=== PATIENT | male | born 1945 | race Caucasian/White ===

== ENCOUNTER 2020-04-22 07:18 | Outpatient (CLI) | payer MEDICARE ==
[2020-04-22 15:20] LABS: BASOPHILS % (AUTO) 0.4 %; EOSINOPHILS # (AUTO) 0.2 10^3/uL (0.0-0.7); EOSINOPHILS % (AUTO) 2.7 %; HGB - HEMOGLOBIN 12.7 g/dL (14.0-18.0); LYMPHOCYTES # (AUTO) 0.9 10^3/uL (1.5-3.5); LYMPHOCYTES % (AUTO) 16.9 %; MEAN CORPUSCULAR HEMOGLOBIN 32.8 pg (27.0-31.0); MEAN CORPUSCULAR HGB CONC 31.8 g/dL (32.0-36.0); MEAN CORPUSCULAR VOLUME 103.4 fL (80.0-94.0); MEAN PLATELET VOLUME 10.3 fL (7.4-11.4); MONOCYTES # (AUTO) 0.5 10^3/uL (0.0-1.0); MONOCYTES % (AUTO) 9.3 %; NEUTROPHILS # (AUTO) 3.9 10^3/uL (1.5-6.6); NEUTROPHILS % (AUTO) 70.5 %; PLT - PLATELET COUNT 236 10^3/uL (130-450); RED BLOOD COUNT 3.87 10^6/uL (4.70-6.10); RED CELL DISTRIBUTION WIDTH 13.1 % (12.0-15.0); WHITE BLOOD COUNT 5.5 x10^3/uL (4.8-10.8)
[2020-04-22 15:35] LABS: % IRON SATURATION 32 % (20-50); BUN - BLOOD UREA NITROGEN 26 mg/dL (6-20); CARBON DIOXIDE - CO2 29 mmol/L (21-32); CHLORIDE 99 mmol/L (101-111); CHOL/HDL RATIO 2.9 (<5.0); CHOLESTEROL 141 mg/dL; CREATININE 0.9 mg/dL (0.6-1.2); GLUCOSE 95 mg/dL (70-100); HDL CHOLESTEROL 49 mg/dL; IRON 107 ug/dL (45-182); LDL CHOLESTEROL,CALCULATED 82 mg/dL; LDL/HDL RATIO 1.7 (<3.6); SODIUM 144 mmol/L (135-145); TOTAL IRON BINDING CAPACITY 332 ug/dL (250-450); TRANSFERRIN 237 mg/dL (180-329); VLDL CHOLESTEROL 10 mg/dL
== END 2020-04-22 07:19 | disposition home or self-care (01) ==
LOC: LAB.S 07:18
PROVIDERS: ATTEND Internal Medicine
DX: D12.6 Benign neoplasm of colon, unspecified (principal); I25.10 Atherosclerotic heart disease of native coronary artery without angina pectoris; E78.5 Hyperlipidemia, unspecified; I10 Essential (primary) hypertension; R73.01 Impaired fasting glucose; I77.9 Disorder of arteries and arterioles, unspecified; Z95.5 Presence of coronary angioplasty implant and graft; D64.9 Anemia, unspecified
CPT/HCPCS: 36415; 80048; 80061; 83540; 83721; 84466; 85025

== ENCOUNTER 2020-06-02 14:47 | Outpatient (CLI) | payer MEDICARE ==
--- NOTE | 2020-06-02 17:23 | CT Report ---
PROCEDURE: Low Dose Lung Cancer Screen INDICATIONS: HISTORY OF SMOKING TECHNIQUE: Noncontrast low-dose 5 mm thick sections acquired from the pulmonary apices to the posterior costophr enic angles. 7 mm thick coronal and sagittal MIP reformats were then acquired. For radiation dose r eduction, the following was used: automated exposure control, adjustment of mA and/or kV according t o patient size. COMPARISON: None. FINDINGS: Image quality: Excellent. Lungs and pleura: 3 mm peripheral right upper lobe nodule seen on image 100, series 4. 5 mm medial right upper lobe nodule seen on image 100, series 4. Mediastinum: Heart size is normal. No pericardial effusion. Moderate atherosclerotic calcifications of the coronary arteries. No mediastinal adenopathy by size criteria. Thoracic aorta and central p ulmonary arteries are normal in size. Esophagus is normal in caliber. No hiatal hernia. Bones and chest wall: No suspicious bony lesions. No vertebral body compression fractures. No axil presley or supraclavicular adenopathy by size criteria. The thyroid is normal in size. Abdomen: Incompletely imaged kidneys demonstrate possible nonobstructing bilateral nephroliths. Lily lizzie the visualized upper abdomen solid organs and bowel loops appear unremarkable sin the absence o f contrast. IMPRESSION: CT chest without acute cardiopulmonary abnormalities. There are 2 right upper lobe pulmonary nodules measuring 3 mm and 5 mm in size. Moderate atherosclerotic calcifications of the coronary arteries. Lung RADS 2: Recommend follow-up screening chest CT in 12 months. Reviewed by: Naveed Arredondo MD on 06/02/2020 5:21 PM PST Approved by: Naveed Arredondo MD on 06/02/2020 5:21 PM PST Station ID: [id number]
== END 2020-06-02 14:48 | disposition home or self-care (01) ==
LOC: DI 14:47
PROVIDERS: ATTEND Internal Medicine
DX: Z12.2 Encounter for screening for malignant neoplasm of respiratory organs (principal); Z87.891 Personal history of nicotine dependence
CPT/HCPCS: G0297 ×2

== ENCOUNTER 2021-04-19 09:06 | Outpatient (CLI) | payer MEDICARE ==
[2021-04-19 14:58] LABS: BASOPHILS % (AUTO) 0.5 %; EOSINOPHILS # (AUTO) 0.1 10^3/uL (0.0-0.7); EOSINOPHILS % (AUTO) 1.5 %; HCT - HEMATOCRIT 39.4 % (42.0-52.0); HGB - HEMOGLOBIN 12.8 g/dL (14.0-18.0); LYMPHOCYTES # (AUTO) 1.1 10^3/uL (1.5-3.5); LYMPHOCYTES % (AUTO) 18.7 %; MEAN CORPUSCULAR HEMOGLOBIN 32.7 pg (27.0-31.0); MEAN CORPUSCULAR HGB CONC 32.5 g/dL (32.0-36.0); MEAN CORPUSCULAR VOLUME 100.5 fL (80.0-94.0); MEAN PLATELET VOLUME 10.7 fL (7.4-11.4); MONOCYTES # (AUTO) 0.6 10^3/uL (0.0-1.0); MONOCYTES % (AUTO) 10.5 %; NEUTROPHILS # (AUTO) 4.1 10^3/uL (1.5-6.6); NEUTROPHILS % (AUTO) 68.3 %; PLT - PLATELET COUNT 226 10^3/uL (130-450); RED BLOOD COUNT 3.92 10^6/uL (4.70-6.10); RED CELL DISTRIBUTION WIDTH 13.1 % (12.0-15.0)
[2021-04-19 15:03] LABS: BUN - BLOOD UREA NITROGEN 20 mg/dL (6-20); CALCIUM 8.9 mg/dL (8.5-10.3); CARBON DIOXIDE - CO2 30 mmol/L (21-32); CHLORIDE 102 mmol/L (101-111); CHOL/HDL RATIO 2.9 (<5.0); CHOLESTEROL 143 mg/dL; CREATININE 0.9 mg/dL (0.6-1.2); GFR - MDRD 83 (>89); GLUCOSE 96 mg/dL (70-100); HDL CHOLESTEROL 50 mg/dL; LDL CHOLESTEROL,CALCULATED 80 mg/dL; LDL/HDL RATIO 1.6 (<3.6); POTASSIUM 4.2 mmol/L (3.5-5.0); SODIUM 140 mmol/L (135-145); TRIGLYCERIDES 66 mg/dL; VLDL CHOLESTEROL 13 mg/dL
== END 2021-04-19 09:07 | disposition home or self-care (01) ==
LOC: LAB.S 09:06
PROVIDERS: ATTEND Internal Medicine
DX: Z00.00 Encounter for general adult medical examination without abnormal findings (principal); D12.6 Benign neoplasm of colon, unspecified; D64.9 Anemia, unspecified; I25.10 Atherosclerotic heart disease of native coronary artery without angina pectoris; N52.9 Male erectile dysfunction, unspecified; Z87.891 Personal history of nicotine dependence; E78.5 Hyperlipidemia, unspecified; I10 Essential (primary) hypertension; R73.01 Impaired fasting glucose; I77.9 Disorder of arteries and arterioles, unspecified; Z95.5 Presence of coronary angioplasty implant and graft
CPT/HCPCS: 36415; 80048; 80061; 83721; 85025

== ENCOUNTER 2021-05-07 09:15 | Outpatient (CLI) | payer MEDICARE ==
--- NOTE | 2021-05-07 09:51 | CT Report ---
PROCEDURE: Low Dose Lung Cancer Screen INDICATIONS: EX SMOKER TECHNIQUE: Noncontrast low-dose images were acquired from the pulmonary apices to the posterior costophrenic ang les. Multiplanar MIP reformats were then acquired. For radiation dose reduction, the following was used: automated exposure control, adjustment of mA and/or kV according to patient size. COMPARISON: None. FINDINGS: Image quality: Excellent. Lungs and pleura: No mass or significant pulmonary nodules. No acute airspace opacity. Trace secreti ons in the trachea. No pleural effusion. No pneumothorax. Mediastinum: Heart size is normal. Three-vessel coronary artery calcifications. No pericardial effu raffi. No mediastinal adenopathy by size criteria. Thoracic aorta and central pulmonary arteries are normal in size. Aortic arch calcifications. Esophagus is normal in caliber. No hiatal hernia. Bones and chest wall: No suspicious bony lesions. No vertebral body compression fractures. No axil presley or supraclavicular adenopathy by size criteria. The thyroid is normal in size and there are no incidental findings. Abdomen: Visualized upper abdomen solid organs and bowel loops appear normal in the absence of contr ast. IMPRESSION: 1. No significant pulmonary nodules. Lung RADS 1. Recommend follow-up CT lung cancer screening in 12 months. 2. Three-vessel coronary artery calcifications. Reviewed by: Austin Parker MD on 05/07/2021 9:49 AM [facility] Approved by: Austin Parker MD on 05/07/2021 9:49 AM PST Station ID: [id number]
--- NOTE | 2021-05-07 11:17 | Ultrasound Report ---
PROCEDURE: Aorta Screening INDICATIONS: EX SMOKER TECHNIQUE: Real time scanning was performed of the aorta and iliac arteries, with image documentatio n. COMPARISON: None available. FINDINGS: Aorta: Proximal aortic diameter measures 2.6 x 2.5 cm. Mid-aorta measures 2.2 x 2.1 cm. Distal aor tic diameter is 2.5 x 2.6 cm. Ectasia of the aorta with atheromatous change. Iliac arteries: Right common iliac artery measures 1 x 1.1 cm. Left common iliac artery measures up to 1.9 x 2 cm. Mural thrombus is noted within the left common iliac artery. IMPRESSION: 1. Dilatation of the left common iliac artery, concerning for aneurysm. If clinically warranted, cons ider CTA imaging for further evaluation. Reviewed by: Eduardo Lloyd MD on 05/07/2021 11:15 AM PST Approved by: Eduardo Lloyd MD on 05/07/2021 11:15 AM PST Station ID: [id number]
== END 2021-05-07 09:16 | disposition home or self-care (01) ==
LOC: DI 09:15
PROVIDERS: ATTEND Internal Medicine
DX: Z12.2 Encounter for screening for malignant neoplasm of respiratory organs (principal); Z13.6 Encounter for screening for cardiovascular disorders; I25.10 Atherosclerotic heart disease of native coronary artery without angina pectoris; Z87.891 Personal history of nicotine dependence; I72.3 Aneurysm of iliac artery

== ENCOUNTER 2022-04-05 08:47 | Outpatient (CLI) | payer MEDICARE ==
[2022-04-05 14:22] LABS: BASOPHILS % (AUTO) 0.5 %; EOSINOPHILS # (AUTO) 0.1 10^3/uL (0.0-0.7); EOSINOPHILS % (AUTO) 1.4 %; HCT - HEMATOCRIT 42.2 % (42.0-52.0); HGB - HEMOGLOBIN 13.3 g/dL (14.0-18.0); LYMPHOCYTES % (AUTO) 17.3 %; MEAN CORPUSCULAR HEMOGLOBIN 32.3 pg (27.0-31.0); MEAN CORPUSCULAR HGB CONC 31.5 g/dL (32.0-36.0); MEAN CORPUSCULAR VOLUME 102.4 fL (80.0-94.0); MEAN PLATELET VOLUME 10.5 fL (7.4-11.4); MONOCYTES # (AUTO) 0.6 10^3/uL (0.0-1.0); NEUTROPHILS # (AUTO) 4.1 10^3/uL (1.5-6.6); NEUTROPHILS % (AUTO) 69.5 %; PLT - PLATELET COUNT 256 10^3/uL (130-450); RED BLOOD COUNT 4.12 10^6/uL (4.70-6.10); RED CELL DISTRIBUTION WIDTH 12.8 % (12.0-15.0); WHITE BLOOD COUNT 5.8 x10^3/uL (4.8-10.8)
[2022-04-05 14:53] LABS: % IRON SATURATION 23 % (20-50); BUN - BLOOD UREA NITROGEN 22 mg/dL (6-20); CALCIUM 9.4 mg/dL (8.5-10.3); CARBON DIOXIDE - CO2 29 mmol/L (21-32); CHLORIDE 103 mmol/L (101-111); CHOL/HDL RATIO 2.8 (<5.0); CHOLESTEROL 145 mg/dL; CREATININE 1.2 mg/dL (0.6-1.2); GFR - MDRD 59 (>89); GLUCOSE 111 mg/dL (70-100); HDL CHOLESTEROL 51 mg/dL; IRON 85 ug/dL (45-182); SODIUM 142 mmol/L (135-145); TOTAL IRON BINDING CAPACITY 364 ug/dL (250-450); TRANSFERRIN 260 mg/dL (180-329); TRIGLYCERIDES 35 mg/dL
== END 2022-04-05 08:48 | disposition home or self-care (01) ==
LOC: LAB.S 08:47
PROVIDERS: ATTEND Internal Medicine
DX: D64.9 Anemia, unspecified (principal); I25.10 Atherosclerotic heart disease of native coronary artery without angina pectoris; E78.5 Hyperlipidemia, unspecified; R73.01 Impaired fasting glucose
CPT/HCPCS: 36415; 80048; 80061; 83540; 83721; 84466; 85025

== ENCOUNTER 2022-10-13 15:16 | Outpatient (CLI) | payer MEDICARE ==
--- NOTE | 2022-10-13 17:24 | CT Report ---
PROCEDURE: CHEST WO INDICATIONS: PULMONARY NODULES TECHNIQUE: Noncontrast 1mm axial images were acquired from the pulmonary apices to the posterior costophrenic an gles. Axial 5 mm soft tissue kernel reconstructions were performed as well as 8 mm axial MIP and cor onal and sagittal 5 mm reformations. For radiation dose reduction, the following was used: automate d exposure control, adjustment of mA and/or kV according to patient size. COMPARISON: 04/25/2023 FINDINGS: Image quality: Excellent. Lungs and pleura: No consolidation. No pleural effusions. No pneumothorax. Resolved subsolid nodules in the left lower lobe. Mediastinum: Heart size is normal. No pericardial effusions. No mediastinal adenopathy by size criter ia. No large vessel abnormality. Extensive coronary calcifications. Chest wall and lower neck: Thyroid is unremarkable. No axillary or supraclavicular adenopathy by size . Bones: No aggressive osseous abnormality. Upper Abdomen: Unremarkable. IMPRESSION: Resolved left lower lobe subsolid nodules, consistent with a resolved infectious/inflammatory process . Reviewed by: Luis Calzada on 10/13/2022 5:23 PM PDT Approved by: Luis Calzada on 10/13/2022 5:23 PM PDT Station ID: [id number]
== END 2022-10-13 15:17 | disposition home or self-care (01) ==
LOC: DI 15:16
PROVIDERS: ATTEND Internal Medicine
DX: R91.8 Other nonspecific abnormal finding of lung field (principal)

== ENCOUNTER 2023-04-19 08:21 | Outpatient (CLI) | payer MEDICARE ==
[2023-04-19 14:43] LABS: ESTIMATED AVERAGE GLUCOSE 114 mg/dL (70-100); HEMOGLOBIN A1c% 5.6 % (4.27-6.07)
[2023-04-19 14:46] LABS: BASOPHILS % (AUTO) 0.6 %; EOSINOPHILS # (AUTO) 0.1 10^3/uL (0.0-0.7); EOSINOPHILS % (AUTO) 1.5 %; HCT - HEMATOCRIT 39.8 % (42.0-52.0); HGB - HEMOGLOBIN 12.8 g/dL (14.0-18.0); LYMPHOCYTES # (AUTO) 1.2 10^3/uL (1.5-3.5); MEAN CORPUSCULAR HEMOGLOBIN 33.1 pg (27.0-31.0); MEAN CORPUSCULAR HGB CONC 32.2 g/dL (32.0-36.0); MEAN CORPUSCULAR VOLUME 102.8 fL (80.0-94.0); MEAN PLATELET VOLUME 10.2 fL (7.4-11.4); MONOCYTES # (AUTO) 0.7 10^3/uL (0.0-1.0); MONOCYTES % (AUTO) 10.6 %; NEUTROPHILS # (AUTO) 4.2 10^3/uL (1.5-6.6); PLT - PLATELET COUNT 247 10^3/uL (130-450); RED BLOOD COUNT 3.87 10^6/uL (4.70-6.10); RED CELL DISTRIBUTION WIDTH 12.6 % (12.0-15.0); WHITE BLOOD COUNT 6.2 x10^3/uL (4.8-10.8)
[2023-04-19 16:33] LABS: BUN - BLOOD UREA NITROGEN 16 mg/dL (6-20); CARBON DIOXIDE - CO2 31 mmol/L (21-32); CHLORIDE 106 mmol/L (101-111); CHOL/HDL RATIO 2.9 (<5.0); CHOLESTEROL 139 mg/dL; CREATININE 1.1 mg/dL (0.6-1.3); GFR - MDRD 65 (>89); GLUCOSE 105 mg/dL (74-104); HDL CHOLESTEROL 48 mg/dL; LDL CHOLESTEROL,CALCULATED 76 mg/dL; LDL/HDL RATIO 1.6 (<3.6); POTASSIUM 4.2 mmol/L (3.5-4.5); SODIUM 141 mmol/L (135-145); TRIGLYCERIDES 73 mg/dL (48-352); VLDL CHOLESTEROL 15 mg/dL
== END 2023-04-19 08:22 | disposition home or self-care (01) ==
LOC: LAB.S 08:21
PROVIDERS: ATTEND Internal Medicine
DX: D64.9 Anemia, unspecified (principal); E78.5 Hyperlipidemia, unspecified; R73.01 Impaired fasting glucose
CPT/HCPCS: 36415; 80048; 80061; 83036; 83721; 85025

== ENCOUNTER 2023-08-16 13:49 | Outpatient (CLI) | payer MEDICARE ==
--- NOTE | 2023-08-16 16:46 | Ultrasound Report ---
PROCEDURE: Ankle Brachial Index INDICATIONS: PAD TECHNIQUE: Ankle-brachial indices were obtained bilaterally and recorded. COMPARISONS: Duplex lower extremity arterial ultrasound from the same date. FINDINGS: Right ankle brachial index (ABBEY): 1.03 Left ankle brachial index (ABBEY): 0.88 Comment: The associated duplex bilateral lower extremity ultrasound demonstrates extensive disease wi th an occluded distal SFA on the right and occluded popliteal artery on the left. The ankle-brachial indices are likely falsely elevated secondary to calcifications. Healing potential: Ankle pressures >55 mm Hg in non-diabetics and >80 mm Hg in diabetics are likely to achieve primary h ealing of ischemic foot ulcers. Toe pressures >30 mm Hg are likely to achieve primary healing of ischemic foot ulcers, toe or transme tatarsal amputations. IMPRESSION: Relatively normal ankle-brachial indices are likely artificially elevated by calcifications. Associat ed duplex arterial ultrasound demonstrates significant peripheral arterial disease. Please refer to s amanda report. Reviewed by: Isaac Mendoza MD on 08/16/2023 4:45 PM PST Approved by: Isaac Mendoza MD on 08/16/2023 4:45 PM PST Station ID: [id number]
--- NOTE | 2023-08-16 16:49 | Ultrasound Report ---
PROCEDURE: Arterial Duplex Lwr Ext BL INDICATIONS: PAD TECHNIQUE: Color and pulse Doppler interrogation was performed of both lower extremity arterial systems, with im age documentation. COMPARISON: ABIs from the same date, CT angiography of the pelvis dated 04/25/2022 FINDINGS: Right lower extremity: Common femoral artery: 167 cm/sec, with monophasic flow. Deep femoral artery: 250 cm/sec, with monophasic flow. Proximal superficial femoral artery: 51 cm/sec, with monophasic flow. Mid superficial femoral artery: 53 cm/sec, with monophasic flow. Distal superficial femoral artery: Occluded Popliteal artery: 34 cm/sec, with monophasic flow. Posterior tibial artery: 35 cm/sec, with monophasic flow. Anterior tibial artery/dorsalis pedis: 13/16 cm/sec, with monophasic flow. Hein-scale imaging description: Extensive plaque. Suspect possible inflow stenosis or occlusion. All waveforms monophasic. Distal SFA occlusion. Left lower extremity: Common femoral artery: 131 cm/sec, with monophasic flow. Deep femoral artery: 70 cm/sec, with monophasic flow. Proximal superficial femoral artery: 61 cm/sec, with monophasic flow. Mid superficial femoral artery: 54 cm/sec, with monophasic flow. Distal superficial femoral artery: 65 cm/sec, with monophasic flow. Popliteal artery: Occluded Posterior tibial artery: 19 cm/sec, with monophasic flow. Anterior tibial artery/dorsalis pedis: 8/19 cm/sec, with monophasic flow. Hein-scale imaging description: Extensive plaque. Suspect possible inflow stenosis or occlusion. All waveforms monophasic. Popliteal artery occlusion. IMPRESSION: 1. There is extensive diffuse atherosclerotic disease. This is present bilaterally. Monophasic wavefo shana throughout suggest possible inflow stenoses or occlusions. There is an occlusion of the distal SF A on the right and of the popliteal artery on the left. Comment: Consider CT angiography of the aorta and runoff vessels versus MR angiography of the aorta a nd runoff vessels. Reviewed by: Isaac Mendoza MD on 08/16/2023 4:48 PM PST Approved by: Isaac Mendoza MD on 08/16/2023 4:48 PM PST Station ID: [id number]
== END 2023-08-16 13:50 | disposition home or self-care (01) ==
LOC: DI 13:49
PROVIDERS: ATTEND Surgery Vascular Surgery
DX: I73.9 Peripheral vascular disease, unspecified (principal); I72.3 Aneurysm of iliac artery
CPT/HCPCS: 93922; 93925

== ENCOUNTER 2023-10-18 14:45 | Outpatient (CLI) | payer MEDICARE ==
--- NOTE | 2023-10-18 15:44 | CT Report ---
PROCEDURE: Lung Cancer Screen INDICATIONS: EX SMOKER TECHNIQUE: A CT scan of the chest was performed. Intravenous contrast media was not administered. Images were re corded and evaluated at appropriate window settings. Reformats: axial MIP of the chest, coronal and s agittal. For radiation dose reduction, the following was used: automated exposure control, adjustment of mA and/or kV according to patient size. COMPARISON: CT chest, 10/13/2022, 04/25/2022, 05/07/2021 and 06/02/2020.. FINDINGS: Image quality: Excellent. Lungs and pleura: No suspicious lung nodules. There are left basilar scars and atelectasis. No pleura l effusions. No pneumothorax. Mediastinum: Heart size is normal. No pericardial effusion. Severe coronary calcification. No large v essel abnormality. No mediastinal adenopathy by size criteria. Chest wall and lower neck: Thyroid is unremarkable. No axillary or supraclavicular adenopathy by size . Bones: No aggressive osseous abnormality. Upper Abdomen: Unremarkable. IMPRESSION: Lung RADS: 1 - Negative. Recommendation: Continue annual screening in 12 Months with LDCT. Severe coronary artery calcification. Reviewed by: Ayleen Leary MD on 10/18/2023 3:43 PM PDT Approved by: Ayleen Leary MD on 10/18/2023 3:43 PM PDT Station ID: [id number]
== END 2023-10-18 14:46 | disposition home or self-care (01) ==
LOC: DI 14:45
PROVIDERS: ATTEND Internal Medicine
DX: Z12.2 Encounter for screening for malignant neoplasm of respiratory organs (principal); Z87.891 Personal history of nicotine dependence; I25.10 Atherosclerotic heart disease of native coronary artery without angina pectoris